=== PATIENT | male | born 1970 | race African-American/Black ===

== ENCOUNTER 2018-01-22 02:25 | Emergency (ER) | payer SELFPAY ==
[~2018-01-22] VITALS: Ht 185.4 cm; Wt 97.0 kg
[2018-01-22] MEDS ORDERED: KETOROLAC 30MG/ML VIAL IM ONE (06:30)
[2018-01-22 06:58] LABS: CHLORIDE 106 mEq/L (98-107)
[2018-01-22 07:01] LABS: BASOPHILS % 0.8 % (0.0-2.0); EOSINOPHILS % 2.6 % (0.0-5.0); HEMATOCRIT. 45.8 % (42.0-52.0); HEMOGLOBIN. 15.7 g/dL (14.0-18.0); LYMPHOCYTES % 28.1 % (20.0-50.0); MEAN CORPUSCULAR HEMOGLOBIN 32.1 pg (28.0-32.0); MEAN CORPUSCULAR VOLUME 93.5 fL (80.0-94.0); MEAN PLATELET VOLUME 7.7 fl (7.4-10.4); MONOCYTES % 11.4 % (2.0-8.0); NEUTROPHILS % 57.1 % (40.0-76.0); PLATELET 208 x1000/uL (130-400); RED CELL DISTRIBUTION WIDTH 12.5 % (11.6-14.6)
[2018-01-22 07:30] VITALS: BP 109/75
== END 2018-01-22 07:54 | disposition home or self-care (01) ==
LOC: ER 02:25
DX: R55 Syncope and collapse (principal); M54.30 Sciatica, unspecified side; I10 Essential (primary) hypertension; F17.200 Nicotine dependence, unspecified, uncomplicated; Z98.890 Other specified postprocedural states
CPT/HCPCS: 36415; 71045; 80048; 85025; 93005; 96372; 99284; J1885